=== PATIENT | male | born 2000 | race Caucasian/White ===

== ENCOUNTER 2024-11-15 08:26 | Outpatient (RCR) | payer OTHER, SELFPAY | END 2024-11-15 23:59 | disposition home or self-care (01) | LOC: RPT 08:26 | PROVIDERS: ATTENDING PHYSICIAN Orthopaedic Surgery | DX: S39.012D Strain of muscle, fascia and tendon of lower back, subsequent encounter (principal); Z73.6 Limitation of activities due to disability | CPT/HCPCS: 97110; 97162 ==

== ENCOUNTER 2024-11-30 02:56 | Emergency (ER) | payer OTHER, SELFPAY ==
[2024-11-30 03:03] VITALS: BP 157/78
[2024-11-30 03:51] VITALS: BP 110/67
[2024-11-30 03:52] VITALS: BMI 28.9
[2024-11-30 04:00] VITALS: BP 120/73
--- NOTE | 2024-11-30 04:46 | ED.GENMED ---
History of Present Illness
General
Chief Complaint: Back Pain
Source: patient
Exam Limitations: none
Time Seen by Provider: 11/30/24 04:21
Nursing documentation reviewed up to this point in time: agreed with
History of Present Illness
History of Present Illness:
24-year-old male presents with 3 years of constant low back pain. Patient has been to several emergency departments during this time and has not had a definitive diagnosis. Was seen most recently at [facility] and had an x-ray of his low
back. This was approximately 1 month ago. He states that it was negative. He brought the radiology study to [facility] with whom he was instructed to follow-up with. At the orthopedic surgeon, they reviewed the x-ray and patient stated that it was
determined to be normal. Patient was referred to physical therapy. He states that he had 1 session and did not feel that it was working. Patient refused x-ray again today. He requests an MRI. He states that he has no new symptoms. Denies bowel
or bladder retention or incontinence. On September 28, 2022, patient was taken over for an emergent MRI at 4 in the morning. Patient became anxious and refused to have the study done. At that point he was referred to neurology for follow-up.
Past History
Past History
ED Past Medical History: Psychiatric
ED Past Surgical History: None
Social History
Tobacco: Non-smoker
Alcohol: None
Drug: None
Personal: Single
Living: with family
Employment: Employed
Review of Systems
Review of Systems
Allergies reviewed?: Yes
All Other Systems: ROS reviewed and negative except as documented in HPI and ROS
Constitutional: Reports no symptoms
EENT: Reports no symptoms
Respiratory: Reports no symptoms
Cardiac: Reports no symptoms
ABD/GI: Denies abdominal pain, nausea, vomiting, diarrhea, constipated or bloody stools
: Reports no symptoms
Musculoskeletal: Reports back pain
Skin: Reports no symptoms
Neurological: Reports no symptoms
Endocrine: Reports no symptoms
Hematologic/Lymphatic: Reports no symptoms
Psychiatric: Reports anxiety
Phy Exam
General Physical Exam
General Presentation: well appearing and mild distress
General age: appears stated age
General Skin: warm and dry
General Habitus: normal
General Mental: alert
Pulmonary Exam
Pulmonary Exam: no respiratory distress and no cough
Neurological Exam
Neurological Exam: alert and oriented x3
Musculoskeletal Exam
Musculoskeletal Exam: full ROM, back pain, neuro vasc intact and other (Negative straight leg raising test bilaterally)
Skin Exam
Skin Exam: normal color, warm/dry and no rash
Psychiatric Exam
Psychiatric Exam: normal mood/affect
Course
Orders/Labs/Results
Orders:
Orders
11/30/24 04:45
Dexamethasone Pf [Decadron] 10 mg PO NOW STA
Ketorolac [Toradol] 15 mg IM NOW STA
Vital Signs
Initial and Last Documented VS:
Initial Vital Signs
Temp Pulse Resp BP Pulse Ox
97.8 F 106 20 157/78 97
11/30/24 03:03 11/30/24 03:03 11/30/24 03:03 11/30/24 03:03 11/30/24 03:03
Last Documented Vital Signs
Temp Pulse Resp BP Pulse Ox
97.8 F 106 20 120/73 97
11/30/24 03:03 11/30/24 03:03 11/30/24 03:03 11/30/24 04:00 11/30/24 04:15
MDM/Problems Addressed
Differential Diagnosis Includes:
Musculoskeletal back pain, sciatica less likely, abscess since patient does not have fever does not admit to IV drug use.
MDM/Problems Addressed:
24-year-old male with 3 years of mostly constant low back pain. Has had normal x-rays in the past.
*Radiology
Radiology exam reviewed: radiology read reviewed and other (Patient deferred low back x-ray.)
*Critical Care Note
Total Time (30-74mins, 75-104mins- exclusive of procedures): Not Applicable
Data Reviewed
Review of Other/Old Records Reveals: Labs and Records
Source: patient
ED Attending Note
-
Portions of this chart may have been created with voice recognition software.� Occasional wrong word or��sound alike� substitutions may have occurred due to the inherent limitations of voice recognition software.
Discharge Plan
Departure
Patient Disposition: Home (Routine Discharge)
Date of Disposition: 11/30/24
Time of Disposition: 04:52
Patient with high blood pressure during this ER visit?: Yes
Discharge Problem:
Low back pain
Instructions: Low Back Pain (DC), BLOOD PRESSURE
Prescriptions:
New
diclofenac sodium 75 mg tablet,delayed release (DR/EC)
75 mg PO BID Qty: 10 0RF
No Action
benztropine 0.5 mg Tablet
0.5 mg PO BID
haloperidol 5 mg Tablet
2.5 mg PO BID
hydroxyzine HCl 50 mg Tablet
50 mg PO BID
propranolol 10 mg Tablet
10 mg PO DAILY
gabapentin 100 mg Capsule
100 mg PO DAILY
fluoxetine 20 mg Capsule
20 mg PO DAILY
prednisone 50 mg tablet
50 mg PO DAILY Qty: 5 0RF
valacyclovir [Valtrex] 1 gram tablet
1,000 mg PO BID 7 Days Qty: 14 0RF
Referrals:
Vivian Azevedo, [Family Provider] -
Activity Restrictions/Additional Instructions:
You were given a prescription for an MRI. Please call the number listed to schedule it. Results should get back to your family doctor.
It was a pleasure meeting you and taking part in your care. We hope for your continued healing and wellness.
Please read discharge instructions in their entirety. However, they are for general education and may not describe your exact diagnosis at discharge. Information on your ER visit and medical conditions were discussed with you along with appropriate
follow up information...
If indicated, please take your medications as instructed and indicated on discharge paperwork.
Please schedule a follow up appointment as directed. Call to schedule an appointment
Please return to the emergency department with ANY change in, persisting, or worsening of symptoms. If any of your symptoms do not improve, or persist, or become more severe within 6-12 hours, please return to the emergency department for further
care.
Please return to the emergency department if you develop a headache, neck pain/stiffness, fever greater than 100.4F, chest pain, shortness of breath, persistent nausea, vomiting, slurred speech, difficulty walking, numbness/tingling, weakness, signs
of infection or any other symptoms that are worrisome to you.
If you have any questions or concerns please do not hesitate to call the Hospital at
Interventions
Interventions:
*Risk Screen - Suicide Last Done: 11/30/24 03:03
*General Assessment Last Done: 11/30/24 03:52
*Neglect/Abuse Screening Last Done: 11/30/24 03:03
ED- Fall Risk Assessment Last Done: 11/30/24 03:52
*ED COVID-19 Vaccine History Last Done: 11/30/24 03:52
ED-Musculoskeletal Assessment Last Done: 11/30/24 03:52
Discharge Date and Time
Print Language: ICELANDIC
[2024-11-30] MEDS: TORADOL 15 MG IM (04:53)
[2024-11-30] MEDS: DECADRON 10 MG PO (04:54)
== END 2024-11-30 05:11 | disposition home or self-care (01) ==
LOC: EMR 02:56
PROVIDERS: EMERGENCY PHYSICIAN Student in an Organized Health Care Education/Training Program; FAMILY PHYSICIAN Family Medicine
DX: M54.50 Low back pain, unspecified (principal)
CPT/HCPCS: 99282; 96372

== ENCOUNTER 2025-06-24 21:07 | Emergency (ER) | payer SELFPAY ==
[2025-06-24 21:14] VITALS: BP 151/100
[2025-06-24 21:18] VITALS: BMI 29.7
--- NOTE | 2025-06-24 21:24 | ED.GENMED ---
History of Present Illness
<Stan Skinner, DO - Last Filed: 06/24/25 22:47>
General
Chief Complaint: Crisis Evaluation
Source: patient and police
Exam Limitations: none
Time Seen by Provider: 06/24/25 21:23
Nursing documentation reviewed up to this point in time: agreed with
History of Present Illness
History of Present Illness:
Note:
CHIEF COMPLAINT(S)
The patient reports feeling like he was going to pass out.
HISTORY OF PRESENT ILLNESS
The patient is a 24-year-old male with a history of schizophrenia who has not been taking his medication for over a year. The patient experiences episodes where he feels like he is going to lose consciousness, prompting him to call for emergency
medical services. Upon arrival, the patient was seen entering and exiting his car multiple times and eating what appeared to be a cookie. He denies the use of alcohol or drugs. The patient reports experiencing frequent hot flashes, and he remains
uncooperative during the examination process, indicating a sense of anxiety about his symptoms and expressing concerns about circulation issues that he perceives to be worsening his condition. The patient conveys a general mistrust in the situation,
describing himself loosely in terms that suggest confusion or an altered mental status.
PAST MEDICAL AND SURGICAL HISTORY
The patient has a known history of schizophrenia.
CHRONIC MEDICAL CONDITIONS SIGNIFICANTLY AFFECTING CARE
Schizophrenia, for which the patient has been non-compliant with medication for over a year.
SOCIAL HISTORY
The patient denies the use of alcohol or drugs.
REVIEW OF SYSTEMS
- General: Reports feeling like he might lose consciousness.
- Neurological: Expresses concerns about passing out, but no specific focal neurological deficit noted.
- Psychiatric: Patient has a history of schizophrenia and exhibits behaviors consistent with non-compliance with psychiatric medication.
PHYSICAL EXAM
General: Alert, no acute distress. in handcuffs
Skin: Warm, dry.
Head: Normocephalic, atraumatic.
Neck: Supple, trachea midline.
Eyes, Ears, Nose, Mouth, and Throat: Oral mucosa moist.
Cardiovascular: Normal peripheral perfusion, no edema.
Respiratory: Respirations are non-labored.
Gastrointestinal: Abdomen nondistended.
Back: Normal range of motion, normal alignment.
Musculoskeletal: Normal range of motion, normal strength.
Neurological: Alert and oriented to person, place, time, and situation. No focal neurological deficit observed.
Psychiatric: Cooperative, appropriate mood & affect.
PROBLEM LIST
Acute:
- Syncope or pre-syncope symptoms
- Anxiety related to psychiatric medication non-compliance
Chronic:
- Schizophrenia (non-compliant with medication)
PLAN
- Evaluate the necessity for psychiatric consultation or services to address medication non-compliance and assess mental health status.
- Consider cardiac monitoring to assess for potential syncope and evaluate cardiovascular health.
- Engage with mental health services to explore compliance strategies and support the patient.
DIFFERENTIAL DIAGNOSIS
The Differential Diagnosis includes, in no particular order and is not limited to:
- Syncope secondary to psychiatric conditions
- Schizophrenia-related psychosis
- Anxiety or panic disorder
- Medication non-compliance consequences
- Neurocardiogenic syncope
- Orthostatic hypotension
- Cardiogenic syncope
- Hyperventilation syndrome
- Seizure activity
- Metabolic or electrolyte imbalance
CARE-UPDATE
06/24/25 - 22:13
Police report 302 filed; awaiting telepsychiatry evaluation to further assess mental health status and necessary interventions.
Past History
<Stan Skinner, DO - Last Filed: 06/24/25 22:47>
Past History
ED Past Medical History: Psychiatric
ED Past Surgical History: None
Social History
Tobacco: Non-smoker
Alcohol: None
Drug: None
Personal: Single
Living: with family
Employment: Employed
Phy Exam
<Acosta Welsh, DO - Last Filed: 06/25/25 01:27>
Physical Exam
Physical Exam:
See HPI
Course
<Stan Skinner, DO - Last Filed: 06/24/25 22:47>
Orders/Labs/Results
Orders:
Orders
06/24/25 21:23
Electrocardiogram (*1) Urgent
Reason for Study: Syncope
EKG- Treatment ONCE
Urine Drug Abuse Screen Urgent
Pulse Ox/cont/shift [RESP] Routine
Quantity: 1
06/24/25 21:28
Acetaminophen Urgent
Alcohol Urgent
Complete Blood Count/With Diff Urgent
Comprehensive Metabolic Panel Urgent
Salicylate Urgent
06/24/25 22:17
Crisis Consult Urgent
Reason for Consult: Agitated, Uncooperative, 302
06/25/25 00:30
Ipratropium/Albuterol Sulfate [Duoneb] 3 ml .ROUTE .STK-MED ONE
Ipratropium/Albuterol Sulfate [Duoneb] 3 ml INH R NOW STA
Abnormal Lab Results
06/24/25
21:28
Glucose 110 H mg/dl
(70-99)
Calcium 10.6 H mg/dl
(8.4-10.2)
Total Protein 8.6 H g/dl
(6.3-8.2)
Albumin 5.3 H g/dl
(3.5-5.0)
Salicylates < 1.0 L mg/dl
(2.0-20.0)
Acetaminophen < 10 L ug/ml
(10-30)
06/24/25 21:28
06/24/25 21:28
Vital Signs
Initial and Last Documented VS:
Initial Vital Signs
Temp Pulse Resp BP Pulse Ox
37.2 C 140 20 151/100 97
06/24/25 21:14 06/24/25 21:14 06/24/25 21:14 06/24/25 21:14 06/24/25 21:14
Last Documented Vital Signs
Temp Pulse Resp BP Pulse Ox
37.2 C 75 20 151/100 97
06/24/25 21:14 06/24/25 22:00 06/24/25 21:14 06/24/25 21:14 06/24/25 21:24
<Acosta Welsh, DO - Last Filed: 06/25/25 01:27>
Orders/Labs/Results
Orders:
Orders
06/24/25 21:23
Electrocardiogram (*1) Urgent
Reason for Study: Syncope
EKG- Treatment ONCE
Urine Drug Abuse Screen Urgent
Pulse Ox/cont/shift [RESP] Routine
Quantity: 1
06/24/25 21:28
Acetaminophen Urgent
Alcohol Urgent
Complete Blood Count/With Diff Urgent
Comprehensive Metabolic Panel Urgent
Salicylate Urgent
06/24/25 22:17
Crisis Consult Urgent
Reason for Consult: Agitated, Uncooperative, 302
06/25/25 00:30
Ipratropium/Albuterol Sulfate [Duoneb] 3 ml .ROUTE .STK-MED ONE
Ipratropium/Albuterol Sulfate [Duoneb] 3 ml INH R NOW STA
Abnormal Lab Results
06/24/25
21:28
Glucose 110 H mg/dl
(70-99)
Calcium 10.6 H mg/dl
(8.4-10.2)
Total Protein 8.6 H g/dl
(6.3-8.2)
Albumin 5.3 H g/dl
(3.5-5.0)
Salicylates < 1.0 L mg/dl
(2.0-20.0)
Acetaminophen < 10 L ug/ml
(10-30)
06/24/25 21:28
06/24/25 21:28
Vital Signs
Initial and Last Documented VS:
Initial Vital Signs
Temp Pulse Resp BP Pulse Ox
37.2 C 140 20 151/100 97
06/24/25 21:14 06/24/25 21:14 06/24/25 21:14 06/24/25 21:14 06/24/25 21:14
Last Documented Vital Signs
Temp Pulse Resp BP Pulse Ox
37.2 C 75 20 151/100 97
06/24/25 21:14 06/24/25 22:00 06/24/25 21:14 06/24/25 21:14 06/24/25 21:24
<Stan Skinner, DO - Last Filed: 06/24/25 22:47>
*Pulse Oximetry
SaO2: 97
Oxygen Mode of Delivery: Room air
<Acosta Welsh DO - Last Filed: 06/25/25 01:27>
*Pulse Oximetry
Patient hypoxic: no
*Critical Care Note
Total Time (30-74mins, 75-104mins- exclusive of procedures): Not Applicable
<Acosta Welsh DO - Last Filed: 06/25/25 01:27>
Update Note
Update Note:
I evaluated the patient at bedside. Telepsych does not recommend 302. He did arrive is a 302 that was petitioned by the police. The patient tells me that he was more concerned from a medical standpoint that he had some palpitations and felt that
he was wheezing. We did give a DuoNeb. I did review the telepsych notes which they 'recommend discharge, recommend dropping 302, recommend outpatient treatment and does not meet criteria for involuntary commitment'
ED Attending Note
<Stna Skinner, DO - Last Filed: 06/24/25 22:47>
-
Portions of this chart may have been created with voice recognition software.� Occasional wrong word or��sound alike� substitutions may have occurred due to the inherent limitations of voice recognition software.
Discharge Plan
Departure
Patient Disposition: Home (Routine Discharge)
Date of Disposition: 06/25/25
Time of Disposition: 01:24
Patient Status:: 302
Patient with high blood pressure during this ER visit?: Yes
Condition: Good
Discharge Problem:
Schizophrenia
Instructions: BLOOD PRESSURE
Prescriptions:
New
albuterol sulfate [Ventolin HFA] 90 mcg/actuation HFA aerosol inhaler
2 puff inhalation Q6H PRN (Reason: shortness of breath or wheezing) Qty: 8.5 0RF
No Action
benztropine 0.5 mg Tablet
0.5 mg PO BID
haloperidol 5 mg Tablet
2.5 mg PO BID
hydroxyzine HCl 50 mg Tablet
50 mg PO BID
propranolol 10 mg Tablet
10 mg PO DAILY
gabapentin 100 mg Capsule
100 mg PO DAILY
fluoxetine 20 mg Capsule
20 mg PO DAILY
prednisone 50 mg tablet
50 mg PO DAILY Qty: 5 0RF
valacyclovir [Valtrex] 1 gram tablet
1,000 mg PO BID 7 Days Qty: 14 0RF
diclofenac sodium 75 mg tablet,delayed release (DR/EC)
75 mg PO BID Qty: 10 0RF
Activity Restrictions/Additional Instructions:
Follow-up as recommended by crisis. Your basic blood work is unremarkable. Your white blood cell count is normal. Your hemoglobin is normal. You did have a little bit of wheezing and we gave a breathing treatment and I also sent a prescription
for an albuterol inhaler to your pharmacy.
Interventions
Interventions:
*Risk Screen - Suicide Last Done: 06/24/25 21:19
*General Assessment Last Done: 06/24/25 21:19
*Neglect/Abuse Screening Last Done: 06/24/25 21:19
*ED- Fall Risk Assessment Last Done: 06/24/25 21:19
*ED COVID-19 Vaccine History Last Done: 06/24/25 21:19
ED-Psychological Assessment Last Done: 06/24/25 21:22
Discharge Date and Time
Print Language: MONGOLIAN
[2025-06-24 21:58] LABS: Hematocrit 49.1 % (39.0-52.0); Hemoglobin 17.0 g/dL (13.0-18.0); Mean Corp Hgb Conc. 34.6 g/dL (33.0-37.0); Mean Corpuscular Volume 85.4 fL (80.0-94.0); Nucleated Red Blood Cells % 0 % (-); Platelet Count 281 10^3/uL (130-400); Red Cell Dist. Width 12.1 % (11.5-14.5)
[2025-06-24 22:13] LABS: ALT (SGPT) 22 U/L (0-50); AST (SGOT) 23 U/L (17-59); Acetaminophen < 10 ug/ml (10-30); Albumin 5.3 g/dl (3.5-5.0); Alkaline Phosphatase 74 U/L (38-126); Blood Urea Nitrogen 17 mg/dl (9-20); Calcium 10.6 mg/dl (8.4-10.2); Carbon Dioxide 27 mmol/L (22-30); Chloride 104 mmol/L (98-107); Estimated Creatinine Clearance 93 ml/min; Glucose 110 mg/dl (70-99); Potassium 4.0 mmol/L (3.5-5.1); Salicylate < 1.0 mg/dl (2.0-20.0); Sodium 142 mmol/L (135-145); Total Protein 8.6 g/dl (6.3-8.2); eGFR > 60.00
[2025-06-25] MEDS: DUONEB 3 ML INH (00:31)
== END 2025-06-25 02:48 | disposition home or self-care (01) ==
LOC: EMR 21:07
PROVIDERS: EMERGENCY PHYSICIAN Emergency Medicine
DX: F20.9 Schizophrenia, unspecified (principal); R03.0 Elevated blood-pressure reading, without diagnosis of hypertension; Z91.128 Patient's intentional underdosing of medication regimen for other reason
CPT/HCPCS: 99283; 94640; 80053; 80143; 80179; 82077; 85025; 93005

== ENCOUNTER 2025-07-16 11:50 | Emergency (ER) | payer OTHER, SELFPAY ==
[2025-07-16 11:52] VITALS: BP 124/81; BMI 29.2
[2025-07-16 12:23] LABS: Hematocrit 44.3 % (39.0-52.0); Hemoglobin 15.5 g/dL (13.0-18.0); Mean Corp Hgb Conc. 35.0 g/dL (33.0-37.0); Mean Corpuscular Volume 86.7 fL (80.0-94.0); Nucleated Red Blood Cells % 0 % (-); Platelet Count 251 10^3/uL (130-400); Red Cell Dist. Width 12.1 % (11.5-14.5)
[2025-07-16 12:27] LABS: Urine Character Clear (Clear)
[2025-07-16 12:41] LABS: ALT (SGPT) 45 U/L (0-50); AST (SGOT) 43 U/L (17-59); Albumin 4.7 g/dl (3.5-5.0); Alkaline Phosphatase 52 U/L (38-126); Blood Urea Nitrogen 16 mg/dl (9-20); Calcium 9.3 mg/dl (8.4-10.2); Carbon Dioxide 25 mmol/L (22-30); Chloride 105 mmol/L (98-107); Estimated Creatinine Clearance 100 ml/min; Glucose 110 mg/dl (70-99); Potassium 3.9 mmol/L (3.5-5.1); Sodium 138 mmol/L (135-145); Total Protein 7.3 g/dl (6.3-8.2); eGFR > 60.00
[2025-07-16 12:43] VITALS: BP 136/87
--- NOTE | 2025-07-16 13:13 | ED.GENMED ---
History of Present Illness
General
Chief Complaint: Dizziness
Source: patient
Exam Limitations: none
Time Seen by Provider: 07/16/25 12:53
History of Present Illness
History of Present Illness:
25-year-old male presents via EMS from urgent care with complaints of dizziness. He describes lightheadedness and a spinning sensation. Patient is a difficult historian. He does have a history of schizophrenia. He states he does not take any
medications regularly. He denies chest pain headache or abdominal pain. No double vision or blurry vision. He admits to drinking alcohol yesterday. He states he had a couple [place]'s. He also may have smoked marijuana yesterday.
Past History
Past History
ED Past Medical History: Psychiatric
ED Past Surgical History: None
Social History
Tobacco: Non-smoker
Alcohol: None
Drug: None
Personal: Single
Living: with family
Employment: Employed
Phy Exam
Physical Exam
Physical Exam:
General: Well-appearing male no acute respiratory distress
HEENT normal cephalic atraumatic
Heart: Regular rate and rhythm
Lungs: Clear no wheeze
Neurologic exam: Alert normal gait conversing appropriately no nystagmus somewhat slow to respond to questions
Extremities: No cyanosis
Course
Orders/Labs/Results
Orders:
Orders
07/16/25 12:14
Alcohol Urgent
CMP [Comprehensive Metabolic Panel] Urgent
Complete Blood Count/With Diff Urgent
Urinalysis Urgent
Date Specimen was Collected: 07/16/25
Time Specimen was Collected: 12:09
Urine Drug Abuse Screen Urgent
Date Specimen was Collected: 07/16/25
Time Specimen was Collected: 12:10
07/16/25 13:08
0.9% Sodium Chloride 1000 ml [Nss] 1,000 ml IV BOLUS
07/16/25 13:18
Add On- LAB Urgent
Tests Added?: alcohol serum
07/16/25 13:26
Add On- LAB Urgent
Tests Added?: alcohol
Abnormal Lab Results
07/16/25
12:14
Abs Immat Gran (auto) 0.1 H 10^3/uL
(0-0.05)
Immature Gran % 0.6 H %
(0-0.5)
Glucose 110 H mg/dl
(70-99)
U Marijuana (THC) Screen Positive H
(Negative)
07/16/25 12:14
07/16/25 12:14
Vital Signs
Initial and Last Documented VS:
Initial Vital Signs
Temp Pulse Resp BP Pulse Ox
98.6 F 81 18 124/81 100
07/16/25 11:52 07/16/25 11:52 07/16/25 11:52 07/16/25 11:52 07/16/25 11:52
Last Documented Vital Signs
Temp Pulse Resp BP Pulse Ox
98.6 F 102 18 136/87 100
07/16/25 11:52 07/16/25 13:00 07/16/25 13:00 07/16/25 12:43 07/16/25 13:15
MDM/Problems Addressed
Differential Diagnosis Includes:
Patient with dizziness. No headache normal neurologic exam consider vertigo versus dehydration. Offered IV fluids. IV fluids were started however the patient stated 30 seconds after the IV fluids were started but they were making him feel worse.
Urine drug screen positive for marijuana
*Pulse Oximetry
SaO2: 100
Oxygen Mode of Delivery: Room air
Patient hypoxic: no
*Critical Care Note
Total Time (30-74mins, 75-104mins- exclusive of procedures): Not Applicable
Update Note
Update Note:
IV fluids were started but patient declined. He is not requesting to go home. I see no reason why he cannot be discharged. Labs reviewed without significant finding. EKG shows sinus rhythm.
ED Attending Note
-
Portions of this chart may have been created with voice recognition software.� Occasional wrong word or��sound alike� substitutions may have occurred due to the inherent limitations of voice recognition software.
Discharge Plan
Departure
Patient Disposition: Home (Routine Discharge)
Date of Disposition: 07/16/25
Time of Disposition: 13:36
Patient with high blood pressure during this ER visit?: No
Discharge Problem:
Dizziness
Instructions: Dizziness
Prescriptions:
No Action
benztropine 0.5 mg Tablet
0.5 mg PO BID
haloperidol 5 mg Tablet
2.5 mg PO BID
hydroxyzine HCl 50 mg Tablet
50 mg PO BID
propranolol 10 mg Tablet
10 mg PO DAILY
gabapentin 100 mg Capsule
100 mg PO DAILY
fluoxetine 20 mg Capsule
20 mg PO DAILY
prednisone 50 mg tablet
50 mg PO DAILY Qty: 5 0RF
valacyclovir [Valtrex] 1 gram tablet
1,000 mg PO BID 7 Days Qty: 14 0RF
diclofenac sodium 75 mg tablet,delayed release (DR/EC)
75 mg PO BID Qty: 10 0RF
albuterol sulfate [Ventolin HFA] 90 mcg/actuation HFA aerosol inhaler
2 puff inhalation Q6H PRN (Reason: shortness of breath or wheezing) Qty: 8.5 0RF
Referrals:
UNKNOWN - PT DOES,NOT KNOW [Family Provider]
Activity Restrictions/Additional Instructions:
Stay hydrated. Return if needed
Interventions
Interventions:
*Risk Screen - Suicide Last Done: 07/16/25 11:52
*General Assessment Last Done: 07/16/25 11:52
*Neglect/Abuse Screening Last Done: 07/16/25 11:52
*ED- Fall Risk Assessment Last Done: 07/16/25 11:52
*ED COVID-19 Vaccine History Last Done: 07/16/25 11:52
ED- Neurological Assessment Last Done: 07/16/25 11:52
Discharge Date and Time
Print Language: [place] ISLAND[place]
== END 2025-07-16 13:56 | disposition home or self-care (01) ==
LOC: EMR 11:50
PROVIDERS: Registered Nurse; EMERGENCY PHYSICIAN Emergency Medicine
DX: R42 Dizziness and giddiness (principal); F20.9 Schizophrenia, unspecified
CPT/HCPCS: 99283; 80053; 80306; 81003; 82077; 85025

== ENCOUNTER 2025-07-24 17:23 | Emergency (ER) | payer OTHER, SELFPAY ==
[2025-07-24 17:26] VITALS: BP 141/99
--- NOTE | 2025-07-24 18:14 | ED.GENMED ---
History of Present Illness
General
Chief Complaint: Crisis Evaluation
Source: patient and family
Exam Limitations: none
Time Seen by Provider: 07/24/25 17:57
Nursing documentation reviewed up to this point in time: agreed with
History of Present Illness
History of Present Illness:
Note:
CHIEF COMPLAINT(S)
The patient reports feeling anxious and having concerns about his mental health.
HISTORY OF PRESENT ILLNESS
The patient is a 25-year-old male who presented to the emergency department due to feelings of anxiety. He expressed a desire to discuss his situation with a healthcare professional. He mentioned having experienced significant anxiety, potentially
related to his mental health, as well as previous physical symptoms including some back pain and severe headaches. The patient has previously consulted specialists for cardiac concerns but did not elaborate on this during the encounter. He expressed
apprehension about being referred to inpatient psychiatric care where he might be administered medications he is not comfortable with. The patient was informed that the emergency department does not prescribe long-term anti-anxiety medications but
is instead seeking resources for outpatient care. The patient indicated a willingness to speak with crisis professionals for further assessment and support.
PAST MEDICAL AND SURGICAL HISTORY
The patient has previously seen a commercial credit portfolio manager for cardiac concerns.
SOCIAL DETERMINANTS AFFECTING HEALTH
The patient mentioned concerns about being referred to inpatient care where he might be medicated against his wishes, indicating potential apprehension regarding healthcare accessibility or medication administration practices.
REVIEW OF SYSTEMS
- Neuropsychiatric: Anxiety, seeking mental health support.
- Musculoskeletal: Reports of back pain previously.
- Neurological: History of severe headaches.
PHYSICAL EXAM
General: Alert, no acute distress.
Skin: Warm, dry.
Head: Normocephalic, atraumatic.
Neck: Supple, trachea midline.
Eye Ears, nose, mouth and throat: Oral mucosa moist.
Cardiovascular: Normal peripheral perfusion, No edema.
Respiratory: Respirations are non-labored.
Gastrointestinal : Abdomen nondistended
Back: Normal range of motion, normal alignment.
Musculoskeletal: Normal ROM, normal strength.
Neurological: Alert and oriented to person, place, time, and situation, No focal neurological deficit observed.
Psychiatric: Cooperative, appropriate mood & affect.
PLAN
The patient will be referred to crisis services for further evaluation and connection to outpatient mental health resources. The emergency department does not provide long-term psychiatric medication management, but crisis professionals can help
facilitate access to appropriate mental health care.
DIFFERENTIAL DIAGNOSIS
The Differential Diagnosis includes, in no particular order and is not limited to:
1. Generalized Anxiety Disorder
2. Panic Disorder
3. Major Depressive Disorder
4. Adjustment Disorder with Anxiety
5. Somatic Symptom Disorder
6. Post-Traumatic Stress Disorder
7. Undifferentiated Somatoform Disorder
8. Psychotic Disorder
9. Substance-Induced Anxiety Disorder
10. Cardiac Arrhythmias
CARE-UPDATE
07/24/25 - 23:51
Patient exhibits some agitation but denies suicidal ideation or homicidal ideation and no hallucinations were reported. The patient chose not to pursue further evaluation and discharged themselves from the emergency department. Criteria for emergent
hospitalization not met.
Disposition:
SUMMARY OF ENCOUNTER
The patient, a 25-year-old male, presented to the emergency department expressing feelings of anxiety and concerns about his mental health. He had a history of anxiety, back pain, and severe headaches and was apprehensive about inpatient psychiatric
care due to potential medication administration. No acute distress was noted, and he was interested in seeking outpatient resources for mental health support. The patient was cooperative with staff but left the department before consulting with
crisis services.
DISPOSITION
[facility].
ASSESSMENT
The patients anxiety appears to be related to a possible psychiatric disorder, given his history and current presentation. No immediate risk of harm to himself or others was reported, and the patient left the department voluntarily.
PLAN
The patient was encouraged to follow up with crisis services and outpatient mental health resources for further evaluation and support.
MEDICAL DECISION MAKING
Chronic conditions affecting care: History of anxiety, potential cardiac concerns.
Complexity of Data Reviewed:
- Generalized Anxiety Disorder
- Panic Disorder
- Major Depressive Disorder
- Adjustment Disorder with Anxiety
- Somatic Symptom Disorder
- Post-Traumatic Stress Disorder
- Undifferentiated Somatoform Disorder
- Psychotic Disorder
- Substance-Induced Anxiety Disorder
- Cardiac Arrhythmias
Care significantly affected by Social Determinants of Health: Patients apprehension regarding inpatient care and medication administration practices.
DIAGNOSIS
Generalized Anxiety Disorder (F41.1)
Adjustment Disorder with Anxiety (F43.23)
Past History
Past History
ED Past Medical History: Psychiatric
ED Past Surgical History: None
Social History
Tobacco: Non-smoker
Alcohol: None
Drug: None
Personal: Single
Living: with family
Employment: Employed
Phy Exam
Physical Exam
Physical Exam:
.
Course
Orders/Labs/Results
Orders:
Orders
07/24/25 18:15
Crisis Consult Urgent
Reason for Consult: anxiety
Vital Signs
Initial and Last Documented VS:
Initial Vital Signs
Temp Pulse Resp BP Pulse Ox
98.3 F 81 20 141/99 99
07/24/25 17:26 07/24/25 17:26 07/24/25 17:26 07/24/25 17:26 07/24/25 17:26
Last Documented Vital Signs
Temp Pulse Resp BP Pulse Ox
98.3 F 81 20 141/99 99
07/24/25 17:26 07/24/25 17:26 07/24/25 17:26 07/24/25 17:26 07/24/25 18:14
*Pulse Oximetry
SaO2: 99
Oxygen Mode of Delivery: Room air
Patient hypoxic: no
*Critical Care Note
Total Time (30-74mins, 75-104mins- exclusive of procedures): Not Applicable
ED Attending Note
-
Portions of this chart may have been created with voice recognition software.� Occasional wrong word or��sound alike� substitutions may have occurred due to the inherent limitations of voice recognition software.
Discharge Plan
Departure
Patient Disposition: Home (Routine Discharge)
Date of Disposition: 07/24/25
Time of Disposition: 18:34
Patient with high blood pressure during this ER visit?: Yes
Condition: Good
Discharge Problem:
Anxiety
Instructions: Anxiety, Adult (DC), BLOOD PRESSURE
Prescriptions:
No Action
benztropine 0.5 mg Tablet
0.5 mg PO BID
haloperidol 5 mg Tablet
2.5 mg PO BID
hydroxyzine HCl 50 mg Tablet
50 mg PO BID
propranolol 10 mg Tablet
10 mg PO DAILY
gabapentin 100 mg Capsule
100 mg PO DAILY
fluoxetine 20 mg Capsule
20 mg PO DAILY
prednisone 50 mg tablet
50 mg PO DAILY Qty: 5 0RF
valacyclovir [Valtrex] 1 gram tablet
1,000 mg PO BID 7 Days Qty: 14 0RF
diclofenac sodium 75 mg tablet,delayed release (DR/EC)
75 mg PO BID Qty: 10 0RF
albuterol sulfate [Ventolin HFA] 90 mcg/actuation HFA aerosol inhaler
2 puff inhalation Q6H PRN (Reason: shortness of breath or wheezing) Qty: 8.5 0RF
Referrals:
UNKNOWN - PT DOES,NOT KNOW [Family Provider]
Interventions
Interventions:
*Risk Screen - Suicide Last Done: 07/24/25 17:33
*General Assessment Last Done: 07/24/25 17:26
*Neglect/Abuse Screening Last Done: 07/24/25 18:07
*ED- Fall Risk Assessment Last Done: 07/24/25 18:07
*ED COVID-19 Vaccine History Last Done: 07/24/25 18:07
*ED Influenza Vaccine History Last Done: 07/24/25 18:07
*Nursing Disposition Last Done: 07/24/25 18:33
ED-Psychological Assessment Last Done: 07/24/25 18:16
Discharge Date and Time
Discharge Date/Time: 07/24/25 18:35
Print Language: GREEK
== END 2025-07-24 18:35 | disposition home or self-care (01) ==
LOC: EMR 17:23
PROVIDERS: EMERGENCY PHYSICIAN Emergency Medicine
DX: F41.9 Anxiety disorder, unspecified (principal); R03.0 Elevated blood-pressure reading, without diagnosis of hypertension
CPT/HCPCS: 99283

== ENCOUNTER 2025-09-16 03:29 | Emergency (ER) | payer OTHER, SELFPAY ==
[2025-09-16 03:35] VITALS: BP 145/83
--- NOTE | 2025-09-16 04:05 | ED.GENMED ---
History of Present Illness
General
Chief Complaint: Crisis Evaluation
Source: patient
Exam Limitations: none
Time Seen by Provider: 09/16/25 03:35
Nursing documentation reviewed up to this point in time: agreed with
History of Present Illness
History of Present Illness:
Pt brought to ED by police, after he was noted to not leave a local restaurant which was closing. Pt requested assistance to police, as he is currently homeless. Pt reports not being able to sleep recently and walking for long period of time today.
In addition, patient did not have anything to eat, until he was given pizza at the [employer], as it was closing. Pt reports feeling lightheaded from time to time. Denies headache. Denies blurred vision. Denies chest pain/palpitations. Denies
nausea/vomiting/diarrhea. Denies recent illness. Pt otherwise does not have any medical conditions that he's being treated for
Past History
Past History
ED Past Medical History: Psychiatric
ED Past Surgical History: None
Social History
Tobacco: Non-smoker
Alcohol: None
Drug: None
Personal: Single
Living: with family
Employment: Employed
Review of Systems
Review of Systems
Allergies reviewed?: Yes
All Other Systems: ROS reviewed and negative except as documented in HPI and ROS
EENT: Reports no symptoms
Respiratory: Reports no symptoms
Cardiac: Reports no symptoms
ABD/GI: Reports no symptoms
Musculoskeletal: Reports no symptoms
Skin: Reports no symptoms
Neurological: Reports dizzy
Phy Exam
Physical Exam
Physical Exam:
General: well nourished male, in no acute distress. afebrile
Heent: nc/at. eomi
Lungs: cta
Heart: rrr
Abd: soft and nontender
Neuro: aao x 3. no focal neurological deficit. normal speech. normal gait
Skin: warm to touch. no rash.
Psych: pleasant and cooperative
Course
Orders/Labs/Results
Orders:
Orders
09/16/25 03:36
Crisis Consult Urgent
Reason for Consult: Crisis
Vital Signs
Initial and Last Documented VS:
Initial Vital Signs
Temp Pulse Resp BP Pulse Ox
98.1 F 104 18 145/83 97
09/16/25 03:35 09/16/25 03:35 09/16/25 03:35 09/16/25 03:35 09/16/25 03:35
Last Documented Vital Signs
Temp Pulse Resp BP Pulse Ox
98.1 F 104 18 145/83 97
09/16/25 03:35 09/16/25 03:35 09/16/25 03:35 09/16/25 03:35 09/16/25 04:06
MDM/Problems Addressed
MDM/Problems Addressed:
Pt spoke with his mother who reported told the patient that he cannot move back into the house. Pt afebrile, appears comfortable without any neurological deficit. Pt walking steadily without any difficulty. Pt's transient symptoms, likely
situation/circumstantial, without any concerning symptoms. Pt without any previous medical history that would require further workup at this time. As such, due to late arrival in ED, advised patient to sleep in the waiting room until sunrise. Pt is
otherwise afebrile and appears comfortable, with steady gait at time of discharge.
*Pulse Oximetry
SaO2: 97
Oxygen Mode of Delivery: Room air
Patient hypoxic: no
*Critical Care Note
Total Time (30-74mins, 75-104mins- exclusive of procedures): Not Applicable
ED Attending Note
-
Portions of this chart may have been created with voice recognition software.� Occasional wrong word or��sound alike� substitutions may have occurred due to the inherent limitations of voice recognition software.
Discharge Plan
Departure
Patient Disposition: Home (Routine Discharge)
Date of Disposition: 09/16/25
Time of Disposition: 04:06
Patient with high blood pressure during this ER visit?: Yes
Condition: Good
Discharge Problem:
Homelessness
Prescriptions:
No Action
benztropine 0.5 mg Tablet
0.5 mg PO BID
haloperidol 5 mg Tablet
2.5 mg PO BID
hydroxyzine HCl 50 mg Tablet
50 mg PO BID
propranolol 10 mg Tablet
10 mg PO DAILY
gabapentin 100 mg Capsule
100 mg PO DAILY
fluoxetine 20 mg Capsule
20 mg PO DAILY
prednisone 50 mg tablet
50 mg PO DAILY Qty: 5 0RF
valacyclovir [Valtrex] 1 gram tablet
1,000 mg PO BID 7 Days Qty: 14 0RF
diclofenac sodium 75 mg tablet,delayed release (DR/EC)
75 mg PO BID Qty: 10 0RF
albuterol sulfate [Ventolin HFA] 90 mcg/actuation HFA aerosol inhaler
2 puff inhalation Q6H PRN (Reason: shortness of breath or wheezing) Qty: 8.5 0RF
Activity Restrictions/Additional Instructions:
As discussed, you currently do not have any acute medical condition that requires further evaluation at this time. Please follow-up with your primary care physician, with any further concerns.
Interventions
Interventions:
*Risk Screen - Suicide Last Done: 09/16/25 03:31
*General Assessment Last Done: 09/16/25 03:31
*Neglect/Abuse Screening Last Done: 09/16/25 03:31
*ED- Fall Risk Assessment Last Done: 09/16/25 03:31
*ED Influenza Vaccine History Last Done: 09/16/25 03:31
*Nursing Disposition Last Done: 09/16/25 04:37
ED-Psychological Assessment Last Done: 09/16/25 03:34
Discharge Date and Time
Discharge Date/Time: 09/16/25 04:38
Print Language: MALTESE
--- NOTE | 2025-09-16 08:35 | EDCM ---
Addendum entered by Arjun Saldivar 09/16/25 10:08:
Spoke with patient at ED waiting room. He was seen by crisis by ED but did not tell Crisis that he would like to go to [facility] in [facility]. CM and patient conferece called to [facility] admission office and they asked him to provide a
clearance letter and medication compliance letter for him to be admitted. The letters need to come from a licensed therapist and/or licensed CHUCK BONER or MD/DO.
CM offered information on homeless shelters but he is NOT interested.
He did not want to reach out to his parents in [place].
He agreed to sign back in to speak with crisis regarding his plan
Original Note:
Triage nurse TT for CM to speak with J Carlos about homeless situation
CM went out to the waiting room to speak with him about resources
He was not in the waiting room at this time
ED service desk agent to contact CM if he reappears
== END 2025-09-16 04:38 | disposition home or self-care (01) ==
LOC: EMR 03:29
PROVIDERS: EMERGENCY PHYSICIAN Emergency Medicine
DX: Z00.8 Encounter for other general examination (principal); R42 Dizziness and giddiness; Z59.00 Homelessness unspecified
CPT/HCPCS: 99283